=== PATIENT | female | born 1985 | race Caucasian/White ===

== ENCOUNTER 2017-08-04 15:39 | Emergency (ER) | payer OTHER ==
--- NOTE | 2017-08-04 16:48 | ER Document Report ---
ED Allergic Reaction - General Chief Complaint: Allergic Reaction Stated Complaint: POSSIBLE ALLERGIC REACTION Time Seen by Provider: 08/04/17 16:42 Mode of Arrival: Ambulatory Information source: Patient Notes: Patient states she has had a previous reaction to muscles or blisters and clams. She states today she ate some shrimp and then began to have a sensation of her throat being itchy and swelling. She also felt that her lips were swelling and she had some shortness of breath. She went to an urgent care with a treated with Benadryl and Decadron. On arrival here she states she feels significantly better. She states she has never had any type of allergy testing. Symptoms were constant. They are better with medication and worse without the medication. No radiation of the symptoms. TRAVEL OUTSIDE OF THE [place] IN LAST 30 DAYS: No - Related Data Allergies/Adverse Reactions: amoxicillin Allergy (Verified 08/04/17 15:49) Penicillins Allergy (Verified 08/04/17 15:49) Past Medical History - General Information source: Patient - Social History Smoking Status: Former Smoker Chew tobacco use (# tins/day): No Frequency of alcohol use: Occasional Drug Abuse: None Family History: Reviewed & Not Pertinent Renal/ Medical History: Denies: Hx Peritoneal Dialysis - Immunizations Hx Diphtheria, Pertussis, Tetanus Vaccination: Yes - 2016 Review of Systems - Review of Systems Constitutional: denies: Chills, Fever Cardiovascular: denies: Chest pain, Palpitations Respiratory: Cough, Short of breath Gastrointestinal: denies: Diarrhea, Vomiting Physical Exam - Vital signs Vitals: Temp Pulse Resp BP Pulse Ox 98.4 F 78 18 130/83 H 98 08/04/17 15:48 08/04/17 15:48 08/04/17 15:48 08/04/17 15:48 08/04/17 15:48 Interpretation: Normal - General General appearance: Appears well, Alert - HEENT Head: Normocephalic, Atraumatic Eyes: Normal Pupils: PERRL - Respiratory Respiratory status: No respiratory distress Chest status: Nontender Breath sounds: Normal Chest palpation: Normal - Cardiovascular Rhythm: Regular Heart sounds: Normal auscultation Murmur: No - Abdominal Inspection: Normal Distension: No distension Bowel sounds: Normal Tenderness: Nontender Organomegaly: No organomegaly - Back Back: Normal, Nontender - Extremities General upper extremity: Normal inspection, Nontender, Normal color, Normal ROM , Normal temperature General lower extremity: Normal inspection, Nontender, Normal color, Normal ROM , Normal temperature, Normal weight bearing. No: Celia's sign - Neurological Neuro grossly intact: Yes Cognition: Normal Orientation: AAOx4 [place] Coma Scale Eye Opening: Spontaneous [place] Coma Scale Verbal: Oriented [place] Coma Scale Motor: Obeys Commands [place] Coma Scale Total: 15 Speech: Normal Motor strength normal: LUE, RUE, LLE, RLE Sensory: Normal - Psychological Associated symptoms: Normal affect, Normal mood - Skin Skin Temperature: Warm Skin Moisture: Dry Skin Color: Normal Course - Vital Signs Vital signs: Temp Pulse Resp BP Pulse Ox 98.4 F 78 18 130/83 H 98 08/04/17 15:48 08/04/17 15:48 08/04/17 15:48 08/04/17 15:48 08/04/17 15:48 Discharge - Discharge Clinical Impression: Allergic reaction Condition: Stable Disposition: HOME, SELF-CARE Instructions: Acute Allergic Reaction ([facility]) Additional Instructions: Please follow-up with an top tile decorator as soon as possible. Your blood pressure was slightly elevated today. Please have this rechecked by your doctor within the next week. Prescriptions: Epinephrine [Epipen Jr 0.15 mg/0.3 mL AutoInject] 1 ea IM ASDIR PRN #1 autoinjector PRN Reason: Prednisone [Deltasone 20 mg Tablet] 3 tab PO DAILY 5 Days #9 tablet Forms: Elevated Blood Pressure
[2017-08-04 16:55] VITALS: BP 111/67
== END 2017-08-04 16:55 | disposition home or self-care (01) ==
LOC: ER 15:39
DX: T78.40XA Allergy, unspecified, initial encounter (principal); X58.XXXA Exposure to other specified factors, initial encounter; Z88.0 Allergy status to penicillin
CPT/HCPCS: 99283

== ENCOUNTER 2019-06-18 17:20 | Emergency (ER) | payer SELFPAY ==
[2019-06-18] MEDS ORDERED: LIDOCAINE 2% VISCOUS SOLN 20 ML UDCUP PO ONE (20:01)
[2019-06-18] MEDS ORDERED: MAG HYDROX/AL HYDROX/SIMETH SUSP 30 ML UDCUP PO ONE (20:01)
[2019-06-18] MEDS ORDERED: ONDANSETRON 4 MG TAB.RAPDIS PO ONE (20:02)
--- NOTE | 2019-06-18 20:08 | ER Document Report ---
ED Medical Screen (RME) - General Chief Complaint: Abdominal Pain Stated Complaint: ABDOMINAL PAIN Time Seen by Provider: 06/18/19 19:46 Primary Care Provider: SYDNEY LIANG FNP-C [Primary Care Provider] - Follow up as needed Notes: HPI: 34-year-old female who is a very vague historian with a history of occasional GERD who takes no meds here for epigastric abdominal pain that radiates to her left upper abd and posteriorly since yesterday. History of this before in the past and she went to an ER somewhere and they thought it may have been her gallbladder and they did a gallbladder ultrasound but it was negative and they were not able to tell her why she had her pain. She states the pain resolved until yesterday. Pain is somewhat worse with eating. She has not taken anything for her symptoms. slight decreased appetite. no fall or trauma. denies fried, spicy, or fatty foods. Last menstrual period was 2 weeks ago. No abdominal surgeries other than a remote tummy tuck. No history of ovarian cysts, fibroids, endometriosis, or renal stones. Normal bowel movements. No UTI symptoms. No URI symptoms. No recent antibiotics or steroids. No history of diabetes or asthma. No vaginal discharge/complaints/lesions or concerns for STDs and does not want a pelvic exam. No ripping or tearing sensation. No excessive NSAID use, Tylenol use, or EtOH. No prior history of gallbladder disease, pancreatitis, ulcers, GI bleed, IBS, Crohn's, or UC. no change in color or caliber or stool. no blood thinners. no fall or trauma. no personal hx of cardiac dz. no other associated sx. ROS neg to include 10 systems, unless mentioned in the hpi. PE:>>>> PHYSICAL_EXAM: GENERAL_APPEARANCE: well_nourished, alert, cooperative, no_acute_distress, no_obvious_discomfort. pleasant, obese young white female, smiling, speaking in full sentences, in no sign of pain or resp distress, at bedside VITALS: reviewed, see vital signs table. HEAD: no_swelling\tenderness on the head. normocephalic. atraumatic. no stanford signs. no raccoons eyes. EYES: PERRL, EOMI, conjunctiva_clear. NOSE: no_nasal_discharge. MOUTH: (-)decreased moisture. THROAT: no_tonsilar_inflammation, no_airway_obstruction. no_lymphadenopathy NECK: supple, no_neck_tenderness, full rom. full strength. no meningeal signs. BACK: no_back_tenderness. CHEST_WALL: no_chest_tenderness. no overlying skin changes LUNGS: no_wheezing, ctab (-)accessory muscle use, good air exchange bilateral. HEART: normal_rate, normal_rhythm, ABDOMEN: normal_BS, soft, mild to mod ttp in the epigastrium and luq (- )guarding, (-)rebound, no_organomegaly, no distension or peritoneal signs. no cva ttp EXTREMITIES: strength 5/5 in all_extremities, good pulses in all_extremities, no_swelling\tenderness in the extremities, no_edema. full rom. normal gait. good pulses. brisk cap refill. good hand wallpaperer helper. NEURO: motor and sensation intact, cranial nerves 2-12 intact, cerebellar fxn intact SKIN: warm, dry, good_color, no_rash. MENTAL_STATUS: speech_clear, oriented_X_3, normal_affect, responds_appropriately to questions. MDM: I have ordered labs and initial work-up and patient will be transferred to the main ER for further work-up. I have greeted and performed a rapid initial assessment of this patient. A comprehensive ED assessment and evaluation of the patient, analysis of test results and completion of medical decision making process will be conducted by an additional ED providers. Documentation achieved through voice recording which my lead to some occasional accidental typographical errors. Extensive efforts have been made to proof read documentation to make sure these are the least as possible Temp Pulse Resp BP Pulse Ox 06/18/19 17:37 98.0 F 66 16 129/84 H 99 Category Date Time Status ACUTE ABDOMEN SERIES [RAD] Stat Exams 06/18/19 20:02 Ordered CBC WITH DIFF [HEME] Stat Lab 06/18/19 18:23 Ordered COMPREHENSIVE METABOLIC PANEL [CHEM] Stat Lab 06/18/19 18:23 Ordered HCG QUALITATIVE, URINE [URIN] Stat Lab 06/18/19 18:23 Uncollected LIPASE [CHEM] Stat Lab 06/18/19 18:23 Ordered URINALYSIS [URIN] Stat Lab 06/18/19 18:23 Uncollected Lidocaine HCl [Xylocaine 2% Viscous Soln 20 ml Udcup] Med 06/18/19 20:01 Once 15 ml PO NOW ONE Mag Hydrox/Al Hydrox/Simeth [Maalox Plus Susp 30 Udcup] Med 06/18/19 20:01 Once 30 ml PO NOW ONE Ondansetron [Zofran Odt 4 mg Tablet] Med 06/18/19 20:02 Once 4 mg PO NOW ONE TRAVEL OUTSIDE OF THE [place] IN LAST 30 DAYS: No - Related Data Allergies/Adverse Reactions: amoxicillin Allergy (Verified 06/18/19 17:33) Penicillins Allergy (Verified 06/18/19 17:33) Past Medical History - Social History Chew tobacco use (# tins/day): No Frequency of alcohol use: Occasional Drug Abuse: None Renal/ Medical History: Denies: Hx Peritoneal Dialysis - Immunizations Hx Diphtheria, Pertussis, Tetanus Vaccination: Yes - 2015 Physical Exam - Vital signs Vitals: Temp Pulse Resp BP Pulse Ox 98.0 F 66 16 129/84 H 99 06/18/19 17:37 06/18/19 17:37 06/18/19 17:37 06/18/19 17:37 06/18/19 17:37 Course - Vital Signs Vital signs: Temp Pulse Resp BP Pulse Ox 98.0 F 66 16 129/84 H 99 06/18/19 17:37 06/18/19 17:37 06/18/19 17:37 06/18/19 17:37 06/18/19 17:37 Doctor's Discharge - Discharge Referrals: SYDNEY LIANG FNP-C [Primary Care Provider] - Follow up as needed
[2019-06-18 20:48] LABS: ABSOLUTE BASOPHILS # (AUTO) 0.1 10^3/uL (0.0-0.2); ABSOLUTE EOSINOPHILS # (AUTO) 0.2 10^3/uL (0.0-0.6); ABSOLUTE LYMPHOCYTES (AUTO) 2.6 10^3/uL (0.5-4.7); ABSOLUTE MONOCYTES (AUTO) 0.7 10^3/uL (0.1-1.4); ABSOLUTE NEUT (AUTO) 9.3 10^3/uL (1.7-8.2); BASOPHILS % (AUTO) 0.6 % (0-2); EOSINOPHILS % (AUTO) 1.8 % (0-6); HEMATOCRIT 40.9 % (36.0-47.0); HEMOGLOBIN 13.7 g/dL (12.0-15.5); LYMPHOCYTES % (AUTO) 20.3 % (13-45); MEAN CORPUSCULAR HGB CONC 33.4 g/dL (32.0-36.0); MEAN CORPUSCULAR VOLUME 90 fl (80-97); MONOCYTES % (AUTO) 5.1 % (3-13); PLATELET COUNT 387 10^3/uL (150-450); RED BLOOD COUNT 4.56 10^6/uL (3.72-5.28); SEGMENTED NEUTROPHILS % (AUTO) 72.2 % (42-78); TOTAL CELLS COUNTED % (AUTO) 100 %; WHITE BLOOD COUNT 12.8 10^3/uL (4.0-10.5)
--- NOTE | 2019-06-18 20:53 | RADIOLOGY REPORT (SQ) ---
EXAM DESCRIPTION: XR ABDOMEN SUPINE AND ERECT WITH CHEST (ABD ACUTE SERIES) COMPLETED DATE/TME: 06/18/2019 20:02 CLINICAL HISTORY: 34 years, Female, epigastric abd pain COMPARISON: Abdomen series. NUMBER OF VIEWS: TECHNIQUE: LIMITATIONS: None. FINDINGS: IMPRESSION: copyright 2010 [employer]- All Rights Reserved Electronically signed by: Michael Bowles 06/18/2019 EXAM DESCRIPTION: CLINICAL HISTORY: epigastric abd pain COMPARISON: None FINDINGS: Frontal view of the chest and supine and upright images of the abdomen were submitted. Cardiac silhouette is within normal limits. There is no focal parenchymal or pleural disease. There is no free air in the abdomen. There is no evidence of bowel obstruction. IMPRESSION: No acute abnormalities. 7:51 PM CDT
[2019-06-18 20:55] LABS: APPEARANCE,URINE SLIGHTLY-CLOUDY; BILIRUBIN,URINE NEGATIVE (NEGATIVE); COLOR,URINE YELLOW; GLUCOSE, URINE NEGATIVE (NEGATIVE); KETONES,URINE NEGATIVE (NEGATIVE); LEUKOCYTE ESTERASE,URINE TRACE (NEGATIVE); NITRITE,URINE NEGATIVE (NEGATIVE); PROTEIN,URINE NEGATIVE (NEGATIVE); URINE SPECIFIC GRAVITY 1.017; UROBILINOGEN,URINE NEGATIVE mg/dL (<2.0)
[2019-06-18 21:14] LABS: ALBUMIN 4.6 g/dL (3.5-5.0); ALKALINE PHOSPHATASE 86 U/L (38-126); ANION GAP 10 (5-19); ASPARTATE AMINO TRANSFERASE 18 U/L (14-36); BILIRUBIN,DIRECT 0.3 mg/dL (0.0-0.4); BILIRUBIN,TOTAL 0.6 mg/dL (0.2-1.3); BLOOD UREA NITROGEN 13 mg/dL (7-20); CARBON DIOXIDE 28 mmol/L (22-30); CHLORIDE 102 mmol/L (98-107); GLUCOSE 89 mg/dL (75-110); POTASSIUM 4.8 mmol/L (3.6-5.0); TOTAL PROTEIN 7.9 g/dL (6.3-8.2)
--- NOTE | 2019-06-18 22:30 | ER Document Report ---
ED General - General Chief Complaint: Abdominal Pain Stated Complaint: ABDOMINAL PAIN Time Seen by Provider: 06/18/19 19:46 Primary Care Provider: SYDNEY LIANG FNP-C [COMMUNITY BASED STAFF] - Follow up as needed TRAVEL OUTSIDE OF THE [place] IN LAST 30 DAYS: No - HPI Notes: HPI: 34-year-old female who is a very vague historian with a history of occasional GERD who takes no meds here for epigastric abdominal pain that radiates to her left upper abd and posteriorly since yesterday. History of this before in the past and she went to an ER somewhere and they thought it may have been her gallbladder and they did a gallbladder ultrasound but it was negative and they were not able to tell her why she had her pain. She states the pain resolved until yesterday. Pain is somewhat worse with eating. She has not taken anything for her symptoms. slight decreased appetite. no fall or trauma. denies fried, spicy, or fatty foods. Last menstrual period was 2 weeks ago. No abdominal surgeries other than a remote tummy tuck. No history of ovarian cysts, fibroids, endometriosis, or renal stones. Normal bowel movements. No UTI symptoms. No URI symptoms. No recent antibiotics or steroids. No history of diabetes or asthma. No vaginal discharge/complaints/lesions or concerns for STDs and does not want a pelvic exam. No ripping or tearing sensation. No excessive NSAID use, Tylenol use, or EtOH. No prior history of gallbladder disease, pancreatitis, ulcers, GI bleed, IBS, Crohn's, or UC. no change in color or caliber or stool. no blood thinners. no fall or trauma. no personal hx of cardiac dz. no other associated sx. Patient reportedly ultrasound of the gallbladder was 2 weeks ago done in an outpatient center and she also reports she was sent to a water project engineer and had a CT scan of her chest but is awaiting the results on this. Patient denies any fever or chills but she did report some mild nausea. After GI cocktail and Zofran she denies nausea and states she does not feel quite as bloated. Patient denies any chest pain currently but did state she had some chest pain 2 weeks ago associated with the left upper abdominal pain. There is no family history of cardiac disease. - Related Data Allergies/Adverse Reactions: amoxicillin Allergy (Verified 06/18/19 17:33) Penicillins Allergy (Verified 06/18/19 17:33) Past Medical History - General Information source: Patient - Social History Smoking Status: Former Smoker Chew tobacco use (# tins/day): No Frequency of alcohol use: Occasional Drug Abuse: None Lives with: Family Family History: Reviewed & Not Pertinent Patient has suicidal ideation: No Patient has homicidal ideation: No Renal/ Medical History: Denies: Hx Peritoneal Dialysis - Immunizations Hx Diphtheria, Pertussis, Tetanus Vaccination: Yes - 2015 Review of Systems - Review of Systems -: Yes All other systems reviewed and negative Physical Exam - Vital signs Vitals: Temp Pulse Resp BP Pulse Ox 98.0 F 66 16 129/84 H 99 06/18/19 17:37 06/18/19 17:37 06/18/19 17:37 06/18/19 17:37 06/18/19 17:37 - Notes Notes: PHYSICAL EXAMINATION: GENERAL: Well-appearing, well-nourished and in no acute distress. HEAD: Atraumatic, normocephalic. EYES: Pupils equal round and reactive to light, extraocular movements intact, conjunctiva are normal. ENT: Nares patent, oropharynx clear without exudates. Moist mucous membranes. NECK: Normal range of motion, supple without lymphadenopathy LUNGS: Breath sounds clear to auscultation bilaterally and equal. No wheezes rales or rhonchi. HEART: Regular rate and rhythm without murmurs ABDOMEN: Soft, nondistended abdomen. No guarding, no rebound. No masses appreciated. Tender over the left upper quadrant and left lateral upper abdomen. No rebound or guarding. No pulsatile mass. No significant pain radiating through to the flank region. Female : deferred Musculoskeletal: Normal range of motion, no pitting or edema. No cyanosis. NEUROLOGICAL: Cranial nerves grossly intact. Normal speech, normal gait. Normal sensory, motor exams PSYCH: Normal mood, normal affect. SKIN: Warm, Dry, normal turgor, no rashes or lesions noted. Course - Re-evaluation Re-evalutation: 06/18/19 23:04 Patient was given GI cocktail and Zofran with some improvement. Patient was given Pepcid and Carafate by mouth. 06/19/19 03:48 Patient reported very minimal improvement in her discomfort after the GI meds. Given the location of the patient's pain, and the finding of diverticulosis on the patient's CT scan, symptoms would fit for diverticulitis. Patient will be covered for diverticulitis and a urinary tract infection and a urine culture was obtained. No evidence for aneurysm or perforation or abscess or renal stone or pyelonephritis. - Vital Signs Vital signs: Temp Pulse Resp BP Pulse Ox 97.5 F 63 15 119/76 97 06/18/19 22:23 06/18/19 22:23 06/18/19 22:23 06/18/19 22:23 06/18/19 22:23 - Laboratory Result Diagrams: 06/18/19 20:20 06/18/19 20:20 Laboratory results interpreted by me: 06/18/19 06/18/19 20:19 20:20 WBC 12.8 H Absolute Neutrophils 9.3 H Ur Leukocyte Esterase TRACE H Discharge - Discharge Clinical Impression: Gastritis Qualifiers: Gastritis type: unspecified gastritis Chronicity: acute Gastritis bleeding: without bleeding Qualified Code(s): K29.00 - Acute gastritis without bleeding Diverticulitis large intestine Qualifiers: Diverticulitis bleeding: without bleeding Diverticulitis complication: without perforation or abscess Qualified Code(s): K57.32 - Diverticulitis of large intestine without perforation or abscess without bleeding Urinary tract infection Qualifiers: Urinary tract infection type: acute cystitis Hematuria presence: without hematuria Qualified Code(s): N30.00 - Acute cystitis without hematuria Condition: Stable Disposition: HOME, SELF-CARE Instructions: Abdominal Pain ([facility]), Diverticulitis ([facility]), Urinary Tract Infection ([facility]), Ciprofloxacin ([facility]) Additional Instructions: Drink plenty of fluids. Liquid only diet until symptoms are resolved. Return to the emergency department in case of fever, severe pain or uncontrolled vomiting. If symptoms persist, then you may need an endoscopy. Prescriptions: Ondansetron [Zofran Odt 4 mg Tablet] 1 - 2 tab PO Q8HP PRN #15 tab.rapdis PRN Reason: For Nausea/Vomiting Ciprofloxacin HCl [Cipro 500 mg Tablet] 500 mg PO BID #20 tablet Metronidazole [Flagyl 500 mg Tablet] 500 mg PO Q6H #40 tablet Referrals: SYDNEY LIANG FNP-C [COMMUNITY BASED STAFF] - Follow up in 1 week
[2019-06-18] MEDS ORDERED: FAMOTIDINE 20 MG TABLET PO ONE (22:59)
[2019-06-18] MEDS ORDERED: SUCRALFATE 1 GM TABLET PO ONE (23:04)
--- NOTE | 2019-06-19 03:04 | RADIOLOGY REPORT (SQ) ---
EXAM DESCRIPTION: CT ABDOMEN PELVIS WITH IV CONTRAST COMPLETED DATE/TME: 06/19/2019 00:00 CLINICAL HISTORY: Abd pain, LUQ COMPARISON: None Available. TECHNIQUE: CT of the abdomen and pelvis performed following IV administration of 90 mL of Omnipaque 350. DLP: 1384 mGycm FINDINGS: Lung Bases: The visualized lung bases are clear. Bones: No destructive bone lesions identified. Abdomen: Liver: The liver has normal size and density. No intrahepatic mass or biliary dilatation. Gallbladder: No calcified gallstones. Spleen, Pancreas, and Adrenal Glands: The spleen, pancreas, and adrenal glands are unremarkable. Kidneys: The kidneys have normal size and contour without evidence of solid mass or hydronephrosis. Vasculature: The aorta and IVC have normal caliber and position. Circumaortic left renal vein. The portal vein is patent. The proximal visceral and renal arteries are patent. Stomach: The stomach and duodenum have normal course. Other: No free intraperitoneal air. Small amount of free fluid. Pelvis: Bladder: Urinary bladder is unremarkable. Bowel: No dilated loops of large or small bowel. Scattered diverticula of the colon. Appendix: Normal appendix. Pelvis: Uterus is not enlarged. IMPRESSION: 1. Small amount of free pelvic fluid is likely physiologic. 2. Diverticulosis without evidence of acute diverticulitis This exam was performed according to our departmental dose-optimization program, which includes automated exposure control, adjustment of the mA and/or kV according to patient size and/or use of iterative reconstruction technique.
[2019-06-19] MEDS ORDERED: CIPROFLOXACIN HCL 500 MG TABLET PO ONE (03:46)
[2019-06-19] MEDS ORDERED: METRONIDAZOLE 500 MG TABLET PO ONE (03:46)
[2019-06-19 04:22] VITALS: BP 118/82
== END 2019-06-19 04:20 | disposition home or self-care (01) ==
LOC: ER 17:20
DX: K57.32 Diverticulitis of large intestine without perforation or abscess without bleeding (principal); N30.00 Acute cystitis without hematuria; K29.00 Acute gastritis without bleeding; R10.13 Epigastric pain; Z88.0 Allergy status to penicillin
CPT/HCPCS: 36415; 87086; 83690; 85025; 81025; 80053; 81001; 74022; 74177; S0119; J3490; 99284